=== PATIENT | male | born 1940 | race Caucasian/White ===

== ENCOUNTER 2016-10-04 23:22 | Inpatient (IN) | payer MEDICARE, OTHER ==
[~2016-10-04] VITALS: Ht 180.3 cm; Wt 69.5 kg
[2016-10-04] MEDS ORDERED: HEPARIN 25,000 UNITS/500ML PMX 500 ML ONE (23:26)
[2016-10-04] MEDS ORDERED: ASPIRIN 81 MG TABLET CHEW PO ONE (23:30)
[2016-10-04] MEDS ORDERED: SODIUM CHLORIDE FLUSH 10ML SYR IVF ONE (23:30)
[2016-10-05] MEDS ORDERED: ASPIRIN 81 MG TABLET CHEW ONE (00:12)
[2016-10-05] MEDS ORDERED: FAMO20TA37 PO (00:37)
[2016-10-05] MEDS ORDERED: TEMA15CA PO (00:37)
[2016-10-05] MEDS ORDERED: FURO20TA3 PO (00:37)
[2016-10-05] MEDS ORDERED: NITR0.4T SL (00:37)
[2016-10-05] MEDS ORDERED: MECL-76 PO (00:37)
[2016-10-05] MEDS ORDERED: PRAV80TA2 PO (00:37)
[2016-10-05] MEDS ORDERED: INSU100C SQ-INSULIN (00:37)
[2016-10-05] MEDS ORDERED: ISOS60TA36 PO (00:37)
[2016-10-05] MEDS ORDERED: CARV6.252 PO (00:37)
[2016-10-05] MEDS ORDERED: CLOP75TA22 PO (00:37)
[2016-10-05] MEDS ORDERED: INSU100V8 SQ (00:37)
[2016-10-05] MEDS ORDERED: methylPREDNISolone SOD SUCC 125 MG/2 ML ONE (00:52)
[2016-10-05] MEDS ORDERED: ALBUTEROL SULFATE 2.5 MG/3 ML NPPB ONE (01:00)
[2016-10-05] MEDS ORDERED: methylPREDNISolone SOD SUCC 125 MG/2 ML IVPush SCH (01:00)
[2016-10-05] MEDS ORDERED: ALBUTEROL/IPRATROPIUM 2.5MG/0.5MG, 3 ML NEB ONE (01:00)
[2016-10-05] MEDS ORDERED: ALBUTEROL/IPRATROPIUM 2.5MG/0.5MG, 3 ML ONE (01:05)
[2016-10-05 01:06] LABS: IS PT STATUS REG ER OR PRE ER? YES
[2016-10-05] MEDS ORDERED: POLYETHYLENE GLYCOL 17 GM PACKET PO PRN (02:00)
[2016-10-05] MEDS ORDERED: ACETAMINOPHEN 325 MG TABLET PO PRN (02:00)
[2016-10-05] MEDS ORDERED: ONDANSETRON 2MG/ML, 2ML IVP PRN (02:00)
[2016-10-05] MEDS ORDERED: NITROGLYCERIN 0.4 MG BOTTLE (25 TABS) SL PRN (02:00)
[2016-10-05] MEDS ORDERED: ALBUTEROL/IPRATROPIUM 2.5MG/0.5MG, 3 ML NPPB PRN (02:30)
[2016-10-05 03:00] VITALS: BP 167/70
[2016-10-05] MEDS: HEPARIN 5,000 UNITS/ML, 1ML SQ SCH ×3 (03:51→18:31)
[2016-10-05] MEDS: INSULIN DETEMIR 100 UNITS/ML, PEN SQ-INSULIN SCH ×2 (03:59→21:23)
[2016-10-05 05:25] LABS: PATH.CAST-FLAG NOT PRESENT; SPERM-FLAG NOT PRESENT; SRC-FLAG NOT PRESENT; XTAL-FLAG NOT PRESENT; YLC-FLAG NOT PRESENT
[2016-10-05 07:17] LABS: BLOOD UREA NITROGEN 43 mg/dL (7-18)
[2016-10-05 07:36] VITALS: BP 167/81
[2016-10-05 07:41] LABS: IS PT STATUS REG ER OR PRE ER? NO
[2016-10-05] MEDS: ISOSORBIDE MONONITRATE ER 60 MG TABLET PO SCH (08:51)
[2016-10-05] MEDS: methylPREDNISolone SOD SUCC 40 MG/ML IV SCH ×3 (08:51→18:33)
[2016-10-05] MEDS: CLOPIDOGREL 75 MG TABLET PO SCH (08:53)
[2016-10-05] MEDS: POTASSIUM CHLORIDE 20 MEQ TAB.ER.PRT PO SCH ×3 (08:53→17:05)
[2016-10-05] MEDS: MECLIZINE CHEWABLE 25 MG TAB PO SCH ×3 (08:54→21:16)
[2016-10-05] MEDS: CARVEDILOL 6.25 MG TABLET PO SCH ×2 (08:54→21:16)
[2016-10-05] MEDS: FUROSEMIDE 40 MG/4 ML IV SCH ×2 (08:55→17:05)
[2016-10-05] MEDS ORDERED: TEMAZEPAM 15 MG CAPSULE PO SCH (09:00)
[2016-10-05] MEDS ORDERED: FAMOTIDINE 20 MG TABLET PO SCH (09:00)
[2016-10-05] MEDS: INSULIN REGULAR 100 UNITS/ML, 3ML VIAL SQ-INSULIN SCH ×4 (10:01→21:24)
[2016-10-05 12:23] LABS: IS PT STATUS REG ER OR PRE ER? NO
[2016-10-05 14:24] VITALS: BP 166/71
[2016-10-05 19:02] LABS: IS PT STATUS REG ER OR PRE ER? NO
[2016-10-05 20:02] VITALS: BP 169/70
[2016-10-05] MEDS ORDERED: PRAVASTATIN 40 MG TABLET PO SCH (21:00)
[2016-10-06] MEDS: methylPREDNISolone SOD SUCC 40 MG/ML IV SCH ×2 (01:33→08:17)
[2016-10-06 02:16] VITALS: BP 152/65
[2016-10-06] MEDS: HEPARIN 5,000 UNITS/ML, 1ML SQ SCH ×2 (02:57→10:35)
[2016-10-06 05:47] LABS: BLOOD UREA NITROGEN 60 mg/dL (7-18)
[2016-10-06 07:30] VITALS: BP 177/83
[2016-10-06] MEDS: CARVEDILOL 6.25 MG TABLET PO SCH (08:16)
[2016-10-06] MEDS: ISOSORBIDE MONONITRATE ER 60 MG TABLET PO SCH (08:16)
[2016-10-06] MEDS: POTASSIUM CHLORIDE 20 MEQ TAB.ER.PRT PO SCH ×2 (08:16→11:12)
[2016-10-06] MEDS: MECLIZINE CHEWABLE 25 MG TAB PO SCH (08:16)
[2016-10-06] MEDS: CLOPIDOGREL 75 MG TABLET PO SCH (08:16)
[2016-10-06] MEDS: FUROSEMIDE 40 MG/4 ML IV SCH (08:17)
[2016-10-06] MEDS: INSULIN REGULAR 100 UNITS/ML, 3ML VIAL SQ-INSULIN SCH ×2 (08:27→11:16)
[2016-10-06] MEDS ORDERED: FAMOTIDINE 20 MG TABLET PO SCH (09:00)
[2016-10-06 09:04] LABS: IS PT STATUS REG ER OR PRE ER? NO
[2016-10-06] MEDS ORDERED: FURO20TA3 PO (10:00)
[2016-10-06] MEDS ORDERED: PRED10TA PO (10:00)
== END 2016-10-06 11:53 | disposition home or self-care (01) | DRG 291 ==
LOC: ED 23:57 → EDIP 10-05 01:39 → 5SO 10-05 02:51 → DCLOUNGE 10-06 11:25
PROVIDERS: ADMIT Hospitalist; ATTEND Hospitalist
PROC: 0T9B70Z Drainage of Bladder with Drainage Device, Via Natural or Artificial Opening (ICD-10-PCS; principal; 2016-10-05)
DX: I13.0 Hypertensive heart and chronic kidney disease with heart failure and stage 1 through stage 4 chronic kidney disease, or unspecified chronic kidney disease (principal); J96.01 Acute respiratory failure with hypoxia; I50.23 Acute on chronic systolic (congestive) heart failure; J44.1 Chronic obstructive pulmonary disease with (acute) exacerbation; I24.8 Other forms of acute ischemic heart disease; N18.4 Chronic kidney disease, stage 4 (severe); I42.9 Cardiomyopathy, unspecified; R74.8 Abnormal levels of other serum enzymes; E78.5 Hyperlipidemia, unspecified; G47.00 Insomnia, unspecified; E11.22 Type 2 diabetes mellitus with diabetic chronic kidney disease; E11.65 Type 2 diabetes mellitus with hyperglycemia; I25.10 Atherosclerotic heart disease of native coronary artery without angina pectoris; T38.0X5A Adverse effect of glucocorticoids and synthetic analogues, initial encounter; Z66 Do not resuscitate; Z79.4 Long term (current) use of insulin; Z87.891 Personal history of nicotine dependence; I25.2 Old myocardial infarction; Z90.49 Acquired absence of other specified parts of digestive tract; Z90.89 Acquired absence of other organs; Z95.1 Presence of aortocoronary bypass graft; Z95.5 Presence of coronary angioplasty implant and graft; Z95.810 Presence of automatic (implantable) cardiac defibrillator
CPT/HCPCS: 36415; 71020; 80048; 80061; 81001; 82570; 82962; 83036; 83735; 83880; 84484; 84540; 85025; 85379; 93005; 93306; 96374; J1644; J1815; J1940; J7620; J2920; J2930